=== PATIENT | female | born 1990 | race American Indian/Alaskan Native ===

== ENCOUNTER 2018-02-10 22:35 | Emergency (ER) | payer SELFPAY ==
[2018-02-10 23:07] VITALS: BP 118/60
[2018-02-10 23:33] LABS: Bilirubin,Urine NEG (Negative); Blood,Urine NEG (Negative); Color,Urine Yellow (Yellow); Mucus,Urine FEW /HPF; Protein,Urine <15 mg/dL mg/dL (Negative); Urobilinogen,Urine < 2.0 mg/dL (<2.0); WBC,Urine < 1.0 /HPF (0.0-6.0)
[2018-02-10 23:48] LABS: Basophils % (Auto) 0.2 % (0.0-1.8); Eosinophils # (Auto) 0.2 K/mm3 (0.0-0.4); Eosinophils % (Auto) 1.5 % (0.0-4.3); Hematocrit 36.3 % (30.3-42.9); Lymphocytes # (Auto) 2.4 K/mm3 (1.2-5.4); Lymphocytes % (Auto) 23.8 % (13.4-35.0); Mean Corpuscular HGB Conc 33 % (30-34); Mean Corpuscular Hemoglobin 27 pg (28-32); Mean Corpuscular Volume 83 fl (79-97); Monocytes # (Auto) 0.7 K/mm3 (0.0-0.8); Monocytes % (Auto) 7.3 % (0.0-7.3); Platelet Count 229 K/mm3 (140-440); Red Blood Count 4.39 M/mm3 (3.65-5.03); Red Cell Distribution Width 14.6 % (13.2-15.2)
[2018-02-11] LABS: Alanine Aminotransferase 11 units/L (7-56); Albumin 3.4 g/dL (3.9-5); BUN/Creatinine Ratio 8; Blood Urea Nitrogen 4 mg/dL (7-17); Calcium 8.8 mg/dL (8.4-10.2); Hemolysis Index 6; Lipase 27 units/L (13-60)
--- NOTE | 2018-02-11 01:13 | Ultrasound Report ---
FINAL REPORT EXAM: US OB > = 14 WEEKS FETUS HISTORY: abd pain while about 20wks TECHNIQUE: Transabdominal sonographic evaluation was performed of the gravid female pelvis with and without color Doppler imaging. PRIORS: None. FINDINGS: Single intrauterine is noted in cephalic presentation. The placenta is anterior. Three-vessel cord is noted. The bladder, stomach bubble and heart is identified. The diaphragm appears continuous. Examination is limited secondary to prominent bowel gas. Rehab Trainer measurements: heart rate 148 beats per minute. Cervical length 4.3 cm. BPD: 4.7 cm, 20 weeks and 1 days ([place]) HC: 16.8 cm, 19 weeks and 3 days ([place]) AC: 14.1 cm, 19 weeks and 3 days ([place]) FL: 3.2 cm, 19 weeks and 6 days ([place]) Estimated age by ultrasound criteria, 19 weeks 5 days. HC/AC: 1.19 Cephalic index: 85.6 Estimated weight 30.5 grams Incompletely evaluated: Four-chamber heart view and spine. IMPRESSION: Single, viable intrauterine . Details above, estimated age by ultrasound criteria 19 weeks 5 days. Limited examination, heart and spine are incompletely evaluated. Recommend follow-up survey for further evaluation.
[2018-02-11] MEDS ORDERED: TYLENOL PO ONE (02:05)
== END 2018-02-11 13:00 | disposition left against medical advice (07) ==
LOC: ED 22:35
DX: R10.9 Unspecified abdominal pain (principal); Z53.21 Procedure and treatment not carried out due to patient leaving prior to being seen by health care provider
CPT/HCPCS: 36415; 76805; 80053; 81001; 83690; 84703; 85025